=== PATIENT | male | born 1965 | race Caucasian/White ===

== ENCOUNTER 2016-06-25 09:52 | Day surgery (SDC) | payer OTHER ==
[~2016-06-25] VITALS: Ht 175.3 cm; Wt 97.7 kg
[2016-06-25 11:04] VITALS: Ht 175.3 cm; Wt 97.7 kg
[2016-06-25 11:11] VITALS: BP 134/78; PULSE 77; RESP 18
[2016-06-25] MEDS ORDERED: OMEP10CA4 PO (11:14)
[2016-06-25] MEDS ORDERED: AMLO2.5T78 PO ×2 (11:14→11:18)
[2016-06-25] MEDS ORDERED: PROP10TA6 PO (11:14)
[2016-06-25] MEDS ORDERED: propranolol (11:20)
[2016-06-25] MEDS ORDERED: omeprazole (11:20)
[2016-06-25] MEDS ORDERED: amlodipine (11:20)
[2016-06-25] MEDS ORDERED: PROPOFOL 40 ML ONE (11:22)
[2016-06-25] MEDS ORDERED: LIDOCAINE 2% (SDV) 5 ML INJ ONE (11:22)
[2016-06-25 11:51] VITALS: BP 98/57; PULSE 62; RESP 16
[2016-06-25 12:23] VITALS: BP 118/76; RESP 20
--- NOTE | 2016-06-26 08:44 | GILP ---
DATE OF PROCEDURE: NAME OF PROCEDURES: 1. Esophagogastroduodenoscopy and biopsy. 2. Flexible sigmoidoscopy. SURGEON: Emanuel Durbin MD PREOPERATIVE DIAGNOSES: 1. Chronic heartburn. 2. Screening colonoscopy. POSTOPERATIVE DIAGNOSES: 1. Gastroesophageal reflux disease. 2. Gastritis with erosions. 3. Gastric mucosal biopsies were taken for Helicobacter pylori test. 4. Poor prep with solid stool and complete colonoscopy could not be done. INDICATION FOR THE PROCEDURE: Mr. Murtaza Rand is a 51-year-old male patient who had chronic hea rtburn, not responding to therapy. He also needed a screening colonoscopy. The procedures and possible complications were well explained to the patient. The patient understoo d and consented to the procedures. DESCRIPTION OF PROCEDURE: Under the influence of anesthesia, the gastroscope was carefully introduc ed into the esophagus and under direct vision, it was advanced to the stomach and through the pyloru s into the duodenal bulb and descending duodenum. FINDINGS: ESOPHAGUS: The patient had gastroesophageal reflux disease. STOMACH: He had gastritis with erosions. Gastric mucosal biopsies were taken for H. pylori test. DUODENUM: Normal. The colonoscope was carefully introduced in the rectum and it was advanced to the sigmoid colon. FINDINGS: The patient had poor prep with solid stool preventing complete colonoscopy. So, the proc edure was terminated. He tolerated the procedures very well and there was no complication from the procedures. At the end of the procedures, he was awake with stable vital signs and he was discharged home to the care of h is family. IMPRESSION: 1. Gastroesophageal reflux disease. 2. Gastritis with erosions. 3. Gastric mucosal biopsies were taken for H. pylori test. 4. Positive stool in the colon preventing complete colonoscopy. PLAN: 1. Omeprazole 40 mg p.o. q.a.m. 2. Zantac 300 mg p.o. at bedtime. 3. Await H. pylori test report. 4. The patient will need repeat colonoscopy with better preparation. Dictated By: EMANUEL JC/SHANNAN Conf#: [id number] DID#: [id number]
== END 2016-06-25 15:52 | disposition home or self-care (01) ==
LOC: GIL 09:52
PROVIDERS: ATTEND Internal Medicine Gastroenterology
DX: Z12.11 Encounter for screening for malignant neoplasm of colon (principal); K21.9 Gastro-esophageal reflux disease without esophagitis; K29.60 Other gastritis without bleeding; I10 Essential (primary) hypertension
CPT/HCPCS: 43239; 45330; 87081; Z7610

== ENCOUNTER 2016-11-12 09:06 | Day surgery (SDC) | payer OTHER ==
[~2016-11-12] VITALS: Ht 175.3 cm; Wt 97.6 kg
[~2016-11-12 09:06] MED LIST: amlodipine; omeprazole; propranolol
[2016-11-12 09:53] VITALS: Ht 175.3 cm; Wt 97.6 kg
[2016-11-12] MEDS ORDERED: PROPOFOL 20 ML ONE ×2 (09:53→10:33)
[2016-11-12] MEDS ORDERED: ZANTAC PO (10:05)
[2016-11-12 10:17] VITALS: BP 136/65; PULSE 63; RESP 16
[2016-11-12 11:03] VITALS: BP 132/81; RESP 20
--- NOTE | 2016-11-12 11:30 | GILP ---
DATE OF PROCEDURE: NAME OF PROCEDURE: Colonoscopy. SURGEON: Emanuel Durbin MD PREOPERATIVE DIAGNOSIS: Screening colonoscopy. POSTOPERATIVE DIAGNOSES: 1. Colonoscopy all the way to the cecum. 2. Internal hemorrhoids. 3. No colon neoplasm was identified. INDICATION FOR THE PROCEDURE: Mr. Murtaza Rand is a 51-year-old male patient who was scheduled f or screening colonoscopy. The procedure and possible complications were well explained to the patient, he understood and conse nted to the procedure. DESCRIPTION OF PROCEDURE: Under the influence of anesthesia, the colonoscope was carefully introduc ed in the rectum and under direct vision, it was advanced all the way to the cecum. FINDINGS: The patient had internal hemorrhoids. No colon neoplasm was identified. He tolerated the procedure very well, and there was no complication from the procedure. At the end of the procedure, he was awake with stable vital signs, and he was discharged home to the care of hi s family. IMPRESSION: 1. Colonoscopy all the way to the cecum. 2. Internal hemorrhoids. 3. No colon neoplasm was identified. PLAN: Next screening colonoscopy in 10 years. Dictated By: EMANUEL JC/SHANNAN Conf#: [id number] DID#: [id number]
== END 2016-11-12 11:46 | disposition home or self-care (01) ==
LOC: GIL 09:06
PROVIDERS: ATTEND Internal Medicine Gastroenterology
DX: Z12.11 Encounter for screening for malignant neoplasm of colon (principal); K64.8 Other hemorrhoids; I10 Essential (primary) hypertension
CPT/HCPCS: 45378; Z7610